=== PATIENT | female | born 2000 | race Caucasian/White ===

== ENCOUNTER 2024-02-08 09:08 | Outpatient (REF) | payer BC, SELFPAY ==
--- NOTE | ~2024-02-08 | US_ITS ---
EXAMINATION: US PELVIS CLINICAL INFORMATION: Irregular, heavy vaginal bleeding; status-post intrauterine device placement. COMPARISON: None available. TECHNIQUE: Ultrasound of the pelvis is performed using both transabdominal and transvaginal transducers along with Doppler. Transvaginal imaging is performed due to inadequate visualization transabdominally. FINDINGS: Uterus: The uterus is anteverted and measures 7.0 x 3.9 x 4.9 cm. The double wall endometrial thickness is 4 mm. An intrauterine device is seen, properly situated within the endometrial canal. The uterus is smooth in contour and has normal myometrial echogenicity. No visible fibroid. Adnexa: Both ovaries are visualized. There is normal color flow to the adnexa. There is no ovarian torsion. There is no pelvic ascites or fluid collection. Right ovary measures 2.7 x 2.1 x 2.9 cm, volume 8.6 mL. Left ovary measures 2.4 x 2.3 x 2.6 cm, volume 7.8 mL. US/US pelvic and transvaginal IMPRESSION: An intrauterine device is seen, properly situated within the endometrial canal. The examination is otherwise unremarkable.
== END 2024-02-08 09:09 | disposition home or self-care (01) ==
LOC: HO.UMASIMG 09:08
PROVIDERS: Visit Provider Nurse Practitioner Women's Health
DX: N92.6 Irregular menstruation, unspecified (principal)
CPT/HCPCS: 76830; 76856